=== PATIENT | female | born 1985 | race Asian ===

== ENCOUNTER 2017-05-16 04:40 | Emergency (ER) | payer MEDICAID ==
[2017-05-16] MEDS: ACETAMINOPHEN 500 MG TAB PO (07:15)
[2017-05-16] MEDS: ONDANSETRON (ODT) 4 MG TAB ODT (07:15)
[2017-05-16] MEDS: IBUPROFEN 600 MG TAB PO (07:16)
== END 2017-05-16 08:33 | disposition home or self-care (01) ==
LOC: FTE 04:40
DX: J02.9 Acute pharyngitis, unspecified (principal)
CPT/HCPCS: 87400; 87880; 99283